=== PATIENT | male | born 1955 | race Caucasian/White ===

== ENCOUNTER → 2020-04-16 11:25 | Outpatient (BNVA) | payer MEDICARE, SELFPAY | PROVIDERS: Family Provider Nurse Practitioner Family; PCP Nurse Practitioner Family; Visit Provider Nurse Practitioner Family | DX: Z13.1 Encounter for screening for diabetes mellitus (principal); R03.0 Elevated blood-pressure reading, without diagnosis of hypertension; Z13.220 Encounter for screening for lipoid disorders; G40.909 Epilepsy, unspecified, not intractable, without status epilepticus; Z12.5 Encounter for screening for malignant neoplasm of prostate | CPT/HCPCS: 80048; 80061; 80185; G0103 ==

== ENCOUNTER → 2021-02-25 11:35 | Outpatient (BNVA) | payer MEDICARE, SELFPAY | PROVIDERS: Family Provider Nurse Practitioner Family; PCP Registered Nurse; Visit Provider Registered Nurse | DX: G40.909 Epilepsy, unspecified, not intractable, without status epilepticus (principal); E78.5 Hyperlipidemia, unspecified; I10 Essential (primary) hypertension | CPT/HCPCS: 80053; 80061; 80185; 85025 ==

== ENCOUNTER → 2022-03-02 10:43 | Outpatient (BNVA) | payer MEDICARE, SELFPAY | PROVIDERS: Family Provider Nurse Practitioner Family; PCP Registered Nurse; Visit Provider Nurse Practitioner Family | DX: G40.909 Epilepsy, unspecified, not intractable, without status epilepticus (principal); I10 Essential (primary) hypertension | CPT/HCPCS: 80053; 80185; 85025 ==

== ENCOUNTER → 2024-06-20 09:18 | Outpatient (BNVA) | payer MEDICARE, SELFPAY | PROVIDERS: Family Provider Nurse Practitioner Family; PCP Registered Nurse; Visit Provider Nurse Practitioner Family | DX: I10 Essential (primary) hypertension (principal) | CPT/HCPCS: 80053; 80061; 85025 ==

== ENCOUNTER → 2024-12-26 10:16 | Outpatient (BNVA) | payer MEDICARE, SELFPAY | PROVIDERS: PCP Registered Nurse; Visit Provider Podiatrist Foot & Ankle Surgery | DX: L60.0 Ingrowing nail (principal); L03.115 Cellulitis of right lower limb | CPT/HCPCS: 11730; 99204; J9999 ==

== ENCOUNTER 2025-03-27 15:51 | Outpatient (CLI) | payer MEDICARE, SELFPAY ==
--- NOTE | 2025-03-27 16:01 | XRR_ITS ---
PROCEDURE INFORMATION: Exam: XR Left Knee Exam date and time: 03/27/2025 4:24 PM Age: 69 years old Clinical indication: Pain; Knee; Left; Additional info: M25.561 - pain in right knee TECHNIQUE: Imaging protocol: Radiologic exam of the left knee. Views: 3 views. COMPARISON: No relevant prior studies available. FINDINGS: Bones/joints: There is moderate to severe medial compartment narrowing and patella femoral compartment narrowing. There is mild spurring of the tibial spines. No fractures are identified. Soft tissues: Normal. XR/XR knee LT 3V* [id number] IMPRESSION: Degenerative changes with moderate to severe medial compartment narrowing.
--- NOTE | 2025-03-27 16:01 | XRR_ITS ---
PROCEDURE INFORMATION: Exam: XR Right Knee Exam date and time: 03/27/2025 4:24 PM Age: 69 years old Clinical indication: Pain; Knee; Right; Additional info: M17.0 - bilateral primary osteoarthritis of knee TECHNIQUE: Imaging protocol: Radiologic exam of the right knee. Views: 3 views. COMPARISON: No relevant prior studies available. FINDINGS: Bones/joints: Moderate degenerative changes within the medial compartment and to a lesser degree the lateral compartment. Joint space narrowing with osteophytosis. Moderate to severe patellofemoral degenerative changes. Corticated ossific density adjacent to the medial femoral condyle. Soft tissues: Soft tissue prominence along the medial joint line. Other findings: Possible loose body anteriorly of approximately 8 mm. XR/XR knee RT 3V* [id number] IMPRESSION: 1. Moderate degenerative changes within the medial compartment and to a lesser degree the lateral compartment. Joint space narrowing with osteophytosis medially. 2. Moderate to severe patellofemoral degenerative changes. 3. Possible loose body anteriorly of approximately [address]
== END 2025-03-27 15:52 | disposition home or self-care (01) ==
PROVIDERS: PCP Registered Nurse; Visit Provider Registered Nurse
DX: M17.0 Bilateral primary osteoarthritis of knee (principal)
CPT/HCPCS: 73562

== ENCOUNTER → 2025-04-08 10:56 | Outpatient (BNVA) | payer MEDICARE, SELFPAY | PROVIDERS: PCP Registered Nurse; Visit Provider Orthopaedic Surgery | DX: Z01.818 Encounter for other preprocedural examination (principal); M25.561 Pain in right knee; M25.562 Pain in left knee; G89.29 Other chronic pain; M17.0 Bilateral primary osteoarthritis of knee | CPT/HCPCS: 36415; 80053; 81001; 85025; 99204 ==

== ENCOUNTER → 2025-04-23 12:58 | Outpatient (BNVA) | payer MEDICARE, SELFPAY | PROVIDERS: PCP Registered Nurse; Visit Provider Family Medicine | DX: Z01.818 Encounter for other preprocedural examination (principal) | CPT/HCPCS: 93005 ==

== ENCOUNTER 2025-04-30 09:16 | Observation (INO) | payer MEDICARE, SELFPAY ==
[2025-04-30] VITALS (22 sets, daily range): BP systolic 142–188; BP diastolic 69–96; PULSE 63–95; RESP 14–20; TEMP 36.3–37.1; O2SAT 91–97; BMI 35.8; BMI 37.8
--- NOTE | 2025-04-30 06:49 | W.PM.OPSUD ---
Surgery/Procedure H&P Update DATE OF PROCEDURE: April 30, 2025 DATE H&P PERFORMED: 04/08/25 CHANGES TO PREVIOUS DOCUMENTATION: Medical clearance for surgery was done by Dr. Vega on 04/22/2025 There is been no interval change in the medical history or condition at this time. PLANNED PROCEDURE: Operation Date: 04/30/25 07:00 Proposed Procedures p Total Knee Arthroplasty(Right) - Matthew Oliveira MD
--- NOTE | 2025-04-30 07:08 | ANES.PREANE2 ---
Pre-Anesthetic Assessment Height/Weight: Height 1.8 m Weight 116.573 kg Temp Pulse Resp BP Pulse Ox O2 Del Method 97.6 F 74 18 163/93 95 Room Air 04/30/25 06:13 04/30/25 06:13 04/30/25 06:13 04/30/25 06:13 04/30/25 06:13 04/30/25 06:13 Operation Date: 04/30/25 07:00 Proposed Procedures p Total Knee Arthroplasty(Right) - Matthew Oliveira MD Familial anesthetic complications: None Was Beta Christy taken within 24 hours: N/A Was Clonidine taken within 24 hours: N/A Last intake: Intake Last Liquid Date 04/29/25 Last Liquid Time 23:00 Last Solid Date 04/29/25 Last Solid Time 23:00 Social No alcohol and No tobacco Exam alert, oriented x 3, clear to auscultation bilaterally and regular rate & rhythm Airway Mallampati: Class III Dentition: full CV/HEM Hypertension Anesthetic Plan ASA status: 3 Anesthesia: General Risk of > 500 ml blood loss (7ml/kg in children): No Medications/Allergies Home Medications ?Medication ?Instructions ?Recorded ?Confirmed ?Last Taken ?Type meloxicam 15 mg tablet 15 mg PO DAILY 30 days #30 tabs 03/31/25 04/29/25 04/24/25 Rx phenytoin sodium extended 200 mg 400 mg PO BEDTIME 04/29/25 04/29/25 04/29/25 History capsule telmisartan 40 mg tablet 40 mg PO DAILY 04/29/25 04/29/25 04/29/25 History Allergies Allergy/AdvReac Type Severity Reaction Status Date / Time No Known Allergies Allergy Verified 04/29/25 14:00 Current Medications Generic Name Dose Route Start Last Admin Trade Name Freq PRN Reason Stop Dose Admin Sodium Chloride 1,000 mls @ 30 mls/hr 04/30/25 06:00 04/30/25 06:27 Sodium Chloride 0.9% IV 05/01/25 05:59 30 mls/hr .Q24H BRIGIDA Administration PFSH Anesthesia Medical History Seizure disorder Surgical History Hx of hand surgery LEFT Social History Smoking and tobacco/nicotine status: never used tobacco/nicotine Alcohol intake: never Substance/Drug Use: never Adopted: No Caregiver/support person: No Lives independently: No Household members: spouse Marital status: service: No Current occupational status: retired Sexually active: Yes Do you think of yourself as: Straight/Heterosexual Current gender identity: Male Anesthesia Procedures Nerve Block Nerve Block 1: Main Anesthesia: spinal anesthesia block Time Out Performed: Yes Consent: requested by attending/covering physician, from patient, from other, risks and benefits reviewed and patient agrees to proceed Anesthesia monitors applied: pulse oximetry, EKG, BP cuff and oxygen Nerve block position: supine Anesthetic Used: ropivicaine 0.5% (30 ml) and with decadron (4 mg) Ultrasound used to: recognize landmarks and visualize and ID femerol nerve Nerve Stimulator Used?: No Interscalene/Femoral BLK: 4 stimuplex 21 g needle used for position and inplane approach, visualize local anesthetic spread and no vascular puncture identified Injection: neg aspiration of heme Patient Tolerated Procedure: well Complications: none
[2025-04-30] MEDS: ceFAZolin 2,000 mg SDV 2000 MG IVP ×3 (07:20→23:28)
[2025-04-30] MEDS: tranexamic acid 1,000 mg/10mL SDV 1000 MG IV (07:45)
--- NOTE | 2025-04-30 09:21 | XR_ITS ---
WS: [id number] Exam: XR knee RT 3V* [id number] Date/Time of Exam: 04/30/2025 9:21 AM Reason For Exam: Right total knee arthroplasty Comparison 03/27/2025. Total knee arthroplasty noted in excellent position. Postoperative changes in the soft tissues. Anterior surgical skin clips. XR/XR knee RT 3V* [id number] IMPRESSION: 1. Total knee replacement in excellent position.
[2025-04-30] MEDS: fentaNYL 50 mcg/mL INJ 2mL IVP (10:02)
--- NOTE | 2025-04-30 10:30 | ANE.PACU2 ---
Inpatient post-anesthesia follow up: Airway intact: Yes Vital signs: Temperature 98.0 F Pulse Rate 93 Respiratory Rate 19 Blood Pressure 165/82 Pulse Oximetry 92 Oxygen Delivery Me thod Room Air Oxygen Flow Rate Fraction of Inspir ed Oxygen Hydration adequate: Yes Nausea and vomiting: No Pain level: 1 Mental status: Baseline
--- NOTE | 2025-04-30 10:56 | PM.OP ---
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 Anesthesia: General Tourniquet time: 46 minutes at 250 mmHg EBL: 20 cc Indications: Jordon is a 69-year-old white male was seen in the orthopedic clinic for debilitating right knee pain. He has failed all conservative measures and x-rays have demonstrated degenerative change with nearly smjb-yk-ewhp presentation medial compartment and significant vnuh-cs-fdsa presentation of the posterior patella. After of clinical evaluation and taking a lengthy history as well as reviewing x-rays patient was offered a total knee arthroplasty at this time. All risk benefits treatment alternatives were discussed he was agreeable to this at this time. Procedure: After obtaining the consent patient taken to the operating room placed the operative table supine position general anesthetic was administered. Once Konesky was achieved pneumatic cuffs placed on proximal right thigh and right leg was prepped and draped usual fashion. After surgical timeout and gravity exsanguination pneumatic cuff was inflated to 250 mmHg. Right foot was in a foot holding device and knee was held at 90 degrees flexion. Longitudinal incision made from superior pole the patella down to the tibial tubercle. Sharp dissection taken down down to subcutaneous tissue electrocautery used to hemostasis. Knee was opened up along medial parapatellar incision line. All soft tissues are sharp debrided. Fat pad anterior horns of the menisci. Capsule of the medial tibia was stripped to expose the knee further. Leg was then put out the full extension and excess soft tissue was debrided around the circumference of the patella. Osteophytes removed the rongeur. Was then sized to appropriate reaming male and patella was reamed up to 14 mm thickness. There is noted that the lateral facet of the patella was more warm than 14 mm and there is hard sclerotic bone in the area. Patella was then placed lateral gutter knee was flexed back to 90 degrees appropriate retractors were placed. Tibial cutting guide was position for 2 mm cut off the most affected side that being medial and this was pinned in place after aligning it with the axis of the lower extremity. Small osteotome driven anterior to the PCL to protect during this cut. Sagittal saw was then used to make 2 mm cut off the proximal tibia. The tibia was then removed in piecemeal after a box cut was made around the PCL insertion. Once this was achieved the PCL retractor was removed drill holes placed the distal femur just anterior to the intercondylar notch. Guide lobo was placed at the end manage the canal of the femur and distal cutting block was positioned on the distal femur. Guidepin was drilled through this. Guide lobo was removed. Sagittal saw was used to make distal cut without any difficulties. Distal femur sized a size 8 femoral cutting block. Drill holes were placed through this. Subsequently size 8 cutting block was placed and impacted on the distal femur. Anterior posterior and chamfer cuts were made without any difficulties. Subsequently on evaluation it appeared that there was not much space of the medial side and therefore additional 2 mm cut was made off of the proximal tibia after guidepins were placed back into their original drill holes and the cutting block was position with a 2+ cut. After this was done excess bone was removed. Soft tissue was debrided from the joint line including menisci and other remaining fat pad. Tibia was sized to size EE tibial tray and aligned with external guide lobo. This was then pinned in place. Trial tibial spacer was placed and a size 8 femoral component was then impacted on the distal femur and knee was put through range of motion found to be stable with good positioning and stability throughout the range of motion. He had full extension as well as full flexion. At this point drill holes were placed through the distal femur. Also at this point posterior patella was sized a size 35 patellar button and appropriate drill holes made ensuring the drill holes hit cancellous bone rather than the sclerotic bone laterally. Trial patella was placed the knee was put through range of motion and it demonstrated good tracking of the patella. Trial Patella was removed. Trial femur was removed. Appropriate retractors were placed as well as the tibial spacer was removed. Drill holes were made for future post of the permanent tray. Drill holes placed over the central canal and then punch was used to prepare for the tibial tray post. All trial components removed at this time. Knee was washed with copious amounts pulse Avage irrigation. Bone plug was placed to the distal femoral drill guide hole to prevent any marrow leakage. Once the area is cleaned and dried permanent tibial tray was placed and impacted. Subsequently femoral component was placed and impacted. At this point small drill holes were placed in the sclerotic bone of the posterior patella and washed and dried. Sure Plex cement was then hand packed into the patella and then placed on the patellar button that being a size 35. These were then placed and held with a patellar clamp until cemented hardened. It was at this point pneumatic cuffs deflated after 46 minutes total tourniquet time. Once cement had hardened trial components for tibial spacer were tried and found the size 10 was adequate. While removing the tibial spacer it was wedged in the medial compartment quite a bit and once it was removed small portion of it broke off and appeared to have fallen back in the posterior aspect of the knee. Attempts were made to isolate this it was irrigated it was vacuum with a sucker shaver. Subsequently I removed femoral component to try and have better visualization. We swept the area with a small instruments and a freer elevator trying to identify if the piece was back there and could not identify it. Therefore at this time femoral component was placed back arm and a permanent size 10 spacer was placed and locked in place. At this point knee was put on a knee bump and extension back is repaired #1 Vicryl [id number]-[id number] sutures. Subcutaneous 2 repair 0 Vicryl interrupted sutures. Skin was closed with skin stephanie. Wounds are cleaned and dry dressed with Xeroform gauze, sterile gauze dressing, ABDs and a Curlex wrap. Tyson wrap was applied for compression. Patient was waken and transferred to cover room. Postoperative x-rays of the knee demonstrated small bone fragments in the posterior portion of the knee. He did not specifically identify any plastic in the back and therefore do not feel that it was in the knee and may have fallen out that time it broke.
[2025-04-30] MEDS: HYDROcodone-acetaminophen 5-325 mg Tablet 1 TAB PO ×3 (11:51→20:36)
[2025-04-30] MEDS: chlorhexidine gluconate 0.12% Btl 473 mL 30 ML MUCOUS MEM ×2 (11:51→16:11)
[2025-04-30] MEDS: mupirocin oint 22 gm 1 APPLIC NASAL (17:13)
[2025-04-30] MEDS: sennosides-docusate Tablet 2 TAB PO (17:14)
[2025-05-01] VITALS: BP 197/62; PULSE 77; RESP 16; TEMP 37.2; O2SAT 95
[2025-05-01] MEDS: HYDROcodone-acetaminophen 5-325 mg Tablet 1 TAB PO ×3 (01:09→10:40)
[2025-05-01 04:00] VITALS: BP 146/77; PULSE 81; RESP 15; TEMP 37.1; O2SAT 94
[2025-05-01 05:08] LABS: Hematocrit 37.4 % (37-53); Hemoglobin 12.00 g/dL (11.27-16.99); Mean Corpuscular HGB Conc 32.1 g/dL (30-55); Mean Corpuscular Hemoglobin 29.9 pg (27-33); Mean Corpuscular Volume 93.0 fl (82-101); Nucleated Red Blood Cells % 0 %; Platelet Count 164 10^3/cmm (157-399); Red Blood Count 4.02 10^6/uL (3.85-5.65); White Blood Count 10.16 10^3/uL (3.29-11.43)
[2025-05-01 05:28] LABS: Anion Gap 12.4 (5-19); Blood Urea Nitrogen 22 mg/dL (8-23); Calcium 8.1 mg/dL (8.5-10.5); Carbon Dioxide 24 mmol/L (22-29); Chloride 108 mmol/L (98-107); Creatinine Clr Calc Pharmacy 91.7288; Glucose 120 mg/dL (65-115); Osmolality Calculated 295 mOsm/kg (285-295); Potassium 4.4 mmol/L (3.5-5.1); Sodium 140 mmol/L (136-145)
[2025-05-01 06:00] VITALS: BMI 37.8
[2025-05-01] MEDS: ceFAZolin 2,000 mg SDV 2000 MG IVP (06:27)
[2025-05-01 07:40] VITALS: BP 169/95; PULSE 82; RESP 16; TEMP 36.4; O2SAT 95
--- NOTE | 2025-05-01 09:53 | P.DS_ITS ---
Discharge Providers Date of Admission: 04/30/25 09:16 Date of Discharge: May 01, 2025 Attending Provider at Admission: Matthew Oliveira MD Attending Provider at Discharge: Matthew Oliveira MD Primary Care Provider: ANGELA Lane Reason for Visit Reason for Visit: M25.561 Brief History: Jordon is a 69-year-old white male was seen in the orthopedic clinic for debilitating right knee pain. He has failed all conservative measures and x- rays have demonstrated degenerative change with nearly wyvg-kn-dckz presentation medial compartment and significant ylft-ex-qnsm presentation of the posterior patella. After of clinical evaluation and taking a lengthy history as well as reviewing x-rays patient was offered a total knee arthroplasty at this time. All risk benefits treatment alternatives were discussed he was agreeable to this at this time. Shanell, the patient underwent successful right total knee arthroplasty with Dr. Matthew Oliveira MD on April 30, 2025. Hospital Course Hospital Course Mr. Briceno is now postoperative day 1 after right total knee arthroplasty Dr. Matthew Oliveira. Patient has done well since surgery. He has worked with physical therapy services, ambulating with a walker for assistance. He is able to ambulate independently and his pain has been well-controlled with oral medications only. He denies any concerns or complaints of shortness of breath, chest pain or pressure. He states that he feels that his symptoms are improved when compared to preoperative. Patient has a walker at home and is ready for discharge. Physical Exam Const: COMMON NORMALS: no acute distress, average body habitus, patient oriented x3, no limitations, alert and well nourished GENERAL APPEARANCE: cooperative; not anxious and not combative ORIENTATION/CONSCIOUSNESS: Yes awake, Yes oriented to person, Yes oriented to place and Yes oriented to time HENMT: COMMON NORMALS: normocephalic and atraumatic HEAD & SCALP: normocephalic and atraumatic Resp: COMMON NORMALS: normal respiratory effort Extremity: RIGHT LOWER EXTREMITY: Yes knee joint (Postoperative bulky dressings removed for exam.) Right knee: Yes inspection (No S/S infection. Mild swelling. No erythema), Yes palpation (Mild TTP distal quad and anterior knee. ), Yes ROM (Able to straight leg raise. ), Yes neurovascular exam (Sensation intact to light touch. Rapid cap refill.) and Yes other (Moderate bloody discharge on postoperative dressing. No active drainage.) Neuro: COMMON NORMALS: patient oriented x3 SENSORIUM/ORIENTATION: Yes alert, Yes oriented to person, Yes oriented to place and Yes oriented to time Psych: ATTITUDE: Yes engaged Skin: COMMON NORMALS: no rashes or lesions noted, turgor normal and no jaundice GENERAL SKIN EXAM: no rashes or lesions noted and turgor normal Urinary Catheter Management: Murillo: Cath Placed During This Visit: yes, but has since been removed by the nurse Reason for Continuing Indwelling Catheter: Perioperative Use in Selected Surgeries Urinary Catheter Date of Insertion: 04/30/25 Date Urinary Catheter Removed: 04/30/25 Time Urinary Catheter Discontinued: 14:00 Discharge Data Studies Completed and Pending Completed Studies During Hospitalization Category Date Time Status XR knee RT 3V* [id number] Routine Exams 04/30/25 09:21 Completed Pending at discharge Category Date Time Status Complete Blood Count w/Auto AM LABS Lab 05/02/25 04:00 Ordered Complete Blood Count w/Auto AM LABS Lab 05/03/25 04:00 Ordered Radiology Impressions Knee X-Ray 04/30/25 09:21 IMPRESSION: 1. Total knee replacement in excellent position. Laboratory Results WBC 10.16 10^3/uL (3.29-11.43) 05/01/25 04:34 RBC 4.02 10^6/uL (3.85-5.65) 05/01/25 04:34 Hgb 12.00 g/dL (11.27-16.99) 05/01/25 04:34 Hct 37.4 % (37-53) 05/01/25 04:34 MCV 93.0 fl (82-101) 05/01/25 04:34 MCH 29.9 pg (27-33) 05/01/25 04:34 MCHC 32.1 g/dL (30-55) 05/01/25 04:34 RDW 13.4 % (12.1-15.1) 05/01/25 04:34 Plt Count 164 10^3/cmm (157-399) 05/01/25 04:34 MPV 11.7 fL (7.4-10.4) H 05/01/25 04:34 Neut % (Auto) 71.0 % 05/01/25 04:34 Lymph % (Auto) 17.7 % 05/01/25 04:34 [place] % (Auto) 10.2 % 05/01/25 04:34 Eos % (Auto) 0.6 % 05/01/25 04:34 Baso % (Auto) 0.3 % 05/01/25 04:34 Neut # (Auto) 7.21 10^3/uL (1.8-7.7) 05/01/25 04:34 Lymph # (Auto) 1.8 10^3/uL (0.8-4.8) 05/01/25 04:34 [place] # (Auto) 1.0 10^3/uL (0.2-0.9) H 05/01/25 04:34 Eos # (Auto) 0.1 10^3/uL (0.0-0.8) 05/01/25 04:34 Baso # (Auto) 0.0 10^3/uL (0.0-0.1) 05/01/25 04:34 Nucleated RBC % (auto) 0 % 05/01/25 04:34 Nucleated RBCs # 0.0 /100WBC 05/01/25 04:34 Sodium 140 mmol/L (136-145) 05/01/25 04:34 Potassium 4.4 mmol/L (3.5-5.1) 05/01/25 04:34 Chloride 108 mmol/L (98-107) H 05/01/25 04:34 Carbon Dioxide 24 mmol/L (22-29) 05/01/25 04:34 Anion Gap 12.4 (5-19) 05/01/25 04:34 BUN 22 mg/dL (8-23) 05/01/25 04:34 Creatinine 1.0 mg/dL (0.7-1.2) 05/01/25 04:34 GFR Calculation 73.9 mL/min (90-130) L 05/01/25 04:34 Glucose 120 mg/dL (65-115) H 05/01/25 04:34 Calculated Osmolality 295 mOsm/kg (285-295) 05/01/25 04:34 Calcium 8.1 mg/dL (8.5-10.5) L 05/01/25 04:34 Vitals Last Vital Signs Temp 97.6 F 05/01/25 07:40 Pulse 82 05/01/25 07:40 Resp 16 05/01/25 07:40 BP 169/95 05/01/25 07:40 Pulse Ox 95 05/01/25 07:40 O2 Del Method Room Air 04/30/25 18:20 Discharge Plan Discharge Patient Disposition: Home Condition: Stable Prescriptions: New hydrocodone-acetaminophen 5-325 mg Tablet 1 tab PO Q6H PRN (Reason: Moderate Pain) 5 Days Qty: 20 0RF aspirin 325 mg Tablet,Delayed Release (Dr/Ec) 325 mg PO DAILY Qty: 30 0RF Continued meloxicam 15 mg tablet 15 mg PO DAILY 30 Days Qty: 30 0RF phenytoin sodium extended 200 mg capsule 400 mg PO BEDTIME Rx Instructions: TAKE 2 CAPSULES BY MOUTH AT BEDTIME telmisartan 40 mg tablet 40 mg PO DAILY Rx Instructions: TAKE 1 TABLET BY MOUTH DAILY Discharge Order = DC NOW: Discharge Order (Routine); Ordered 05/01/25 Ordered By: Princess Multani Other Ambulatory Orders: Physical Therapy Eval and Treat Outpatient (Order) Timeframe: 2 Weeks Facility: [facility] - Location: Physical Therapy Ordered By: Matthew Oliveira Referrals: Matthew Oliveira MD [Physician, Orthopedics] - 05/19/25 3:30 pm Discharge Diet: Advance as tolerated and Usual diet Discharge Activity: Increase activity as tolerated and Use walker/crutches as instructed Patient Instructions: Acute Wound Care (DC), Opioid Safety, Post Anesthesia Care, Patient Portal & Laura Instructions Activity Restrictions/Additional Instructions: Maintain clean and dry postoperative dressing. May shower with postoperative dressing in place, with running water and soap only. Do not soak the incision site. If your postoperative dressing loosens or becomes saturated with drainage, please contact our clinic for further instruction. Use ice and elevation to help with swelling. Continue pain medications as needed. Ambulate with the assistance of a walker. Follow-up in the clinic 2 weeks postoperatively. Contact clinic with any questions or concerns. Discharge Attestations Time Spent in Discharge Care*: greater than 30 min Quality Metrics Clinical Quality Measures [ No reported AMI, CVA or VTE this stay] Coding Level of Care Code Acute Code for Chg Fwcallum
[2025-05-01] MEDS: sennosides-docusate Tablet 2 TAB PO (10:39)
[2025-05-01 10:40] VITALS: BP 169/95
[2025-05-01] MEDS: multivitamin therapeutic Tablet 1 TAB PO (10:40)
== END 2025-05-01 12:11 | disposition home or self-care (01) ==
LOC: MEDSURG 09:17
PROVIDERS: Admitting Provider Orthopaedic Surgery; PCP Registered Nurse; Visit Provider Orthopaedic Surgery
PROC: (CPT 27447; principal; 2025-04-30 07:00)
DX: M17.11 Unilateral primary osteoarthritis, right knee (principal); I10 Essential (primary) hypertension; G40.909 Epilepsy, unspecified, not intractable, without status epilepticus
CPT/HCPCS: 27447; 36415; 73562; 80048; 85025; 97110; 97116; 97161; 97165; 97530; A4216; C1713; C1776; G0378; J0131; J0690; J1100; J1171; J1885; J2371; J2405; J2704; J2795; J3010; J7030; J9999

== ENCOUNTER 2025-05-08 15:12 | Outpatient (RCR) | payer MEDICARE, SELFPAY | END 2025-06-06 23:59 | disposition home or self-care (01) | LOC: SPT 15:12 | PROVIDERS: PCP Registered Nurse; Visit Provider Orthopaedic Surgery | DX: Z47.1 Aftercare following joint replacement surgery (principal); Z96.659 Presence of unspecified artificial knee joint | CPT/HCPCS: 97110; 97161 ==

== ENCOUNTER → 2025-05-19 15:25 | Outpatient (BNVA) | payer MEDICARE, SELFPAY | PROVIDERS: PCP Registered Nurse; Visit Provider Orthopaedic Surgery | DX: Z96.641 Presence of right artificial hip joint (principal); Z96.651 Presence of right artificial knee joint | CPT/HCPCS: 73560; 73565; 99024 ==

== ENCOUNTER → 2025-07-18 09:14 | Outpatient (BNVA) | payer MEDICARE, SELFPAY | PROVIDERS: PCP Registered Nurse; Visit Provider Orthopaedic Surgery | DX: Z96.651 Presence of right artificial knee joint (principal); L60.0 Ingrowing nail | CPT/HCPCS: 99213 ==